=== PATIENT | female | born 2000 | race Caucasian/White ===

== ENCOUNTER 2022-05-14 09:29 | Emergency (ER) | payer OTHER ==
[~2022-05-14] VITALS: Ht 157.5 cm; Wt 54.6 kg
[2022-05-14 09:31] VITALS: BP 119/60
--- NOTE | 2022-05-14 09:49 | NUR ---
21 Y/O F BIB SELF C/O ANXIETY, NAUSEA, COLD SWEAT, SHAKING ON AND OFF FOR X 2 MONTHS. LMP 3 MONTHS AGO. PT HAS BEEN TAKING OVER THE COUNTER STRESS GUMMIES WITH NO RELIVE. NKA PMH: DENIES
--- NOTE | 2022-05-14 10:26 | NUR ---
DR ROMERO AT BEDSIDE.
--- NOTE | 2022-05-14 10:45 | NUR ---
Patient discharged with v/s stable. Written and verbal after care instructions given and explained. Patient verbalized understanding. Ambulatory with steady gait. All questions addressed prior to discharge. Advised to follow up with PMD.
--- NOTE | 2022-05-14 10:53 | NUR ---
The patient's care was reviewed and supervised by Olga Tripp RN.
== END 2022-05-14 10:45 | disposition home or self-care (01) ==
LOC: MED 09:29
DX: F41.0 Panic disorder [episodic paroxysmal anxiety] (principal)
CPT/HCPCS: 81002; 81025; 99282

== ENCOUNTER 2022-11-14 21:41 | Emergency (ER) | payer OTHER ==
[~2022-11-14] VITALS: Ht 157.5 cm; Wt 54.4 kg
[2022-11-14 21:50] VITALS: BP 126/86
--- NOTE | 2022-11-14 21:53 | NUR ---
TO LOBBY A/W BED AMBULATORY
[2022-11-15] MEDS ORDERED: LIDOCAINE 1% 500 MG/ 50 ML VIAL INJ ONE (00:15)
[2022-11-15] MEDS ORDERED: LIDOCAINE 2% 1000 MG/50 ML VIAL INJ ONE (00:20)
[2022-11-15] MEDS ORDERED: LIDOCAINE MPF 1% 5 ML ONE (00:22)
[2022-11-15] MEDS ORDERED: LIDOCAINE MPF 1% 10 MG/ML VIAL INJ ONE (00:30)
[2022-11-15 01:12] VITALS: BP 118/63
== END 2022-11-15 01:07 | disposition home or self-care (01) ==
LOC: MED 21:41
DX: S61.212A Laceration without foreign body of right middle finger without damage to nail, initial encounter (principal); W45.8XXA Other foreign body or object entering through skin, initial encounter; Y93.89 Activity, other specified; Y92.89 Other specified places as the place of occurrence of the external cause; Y99.8 Other external cause status
CPT/HCPCS: 12001; 99282; J2001; 90715

== ENCOUNTER 2022-11-18 20:03 | Emergency (ER) | payer OTHER ==
[~2022-11-18] VITALS: Ht 157.5 cm; Wt 57.3 kg
[2022-11-18 20:40] VITALS: BP 114/58
--- NOTE | 2022-11-18 20:44 | NUR ---
PT TO LOBBY
--- NOTE | 2022-11-18 23:19 | NUR ---
PATIENT SPOKE WITH ER MD PRIOR TO DISCHARGE. DISCHARGED WITHOUT PAPERWORK.
== END 2022-11-18 23:19 | disposition home or self-care (01) ==
LOC: MED 20:03
DX: S61.212D Laceration without foreign body of right middle finger without damage to nail, subsequent encounter (principal); Z48.00 Encounter for change or removal of nonsurgical wound dressing; X58.XXXD Exposure to other specified factors, subsequent encounter
CPT/HCPCS: 99281

== ENCOUNTER 2022-11-25 19:55 | Emergency (ER) | payer OTHER ==
[~2022-11-25] VITALS: Ht 157.5 cm; Wt 55.8 kg
[2022-11-25 20:20] VITALS: BP 109/63
--- NOTE | 2022-11-25 20:23 | NUR ---
TO LOBBY A/W BED AMBULATORY
--- NOTE | 2022-11-25 22:23 | NUR ---
PT TO [facility]
[2022-11-25] MEDS ORDERED: BACTO TP (23:25)
[2022-11-25 23:30] VITALS: BP 109/63
--- NOTE | 2022-11-25 23:30 | NUR ---
Patient discharged with v/s stable. Written and verbal after care instructions given and explained. Patient alert, oriented and verbalized understanding of instructions. Ambulatory with steady gait. All questions addressed prior to discharge. ID band removed. Patient advised to follow up with PMD. Rx of BACTROBAN given. Patient educated on indication of medication including possible reaction and side effects. Opportunity to ask questions provided and answered.
== END 2022-11-25 23:30 | disposition home or self-care (01) ==
LOC: MED 19:55
DX: S61.212D Laceration without foreign body of right middle finger without damage to nail, subsequent encounter (principal); Z48.02 Encounter for removal of sutures; Z79.899 Other long term (current) drug therapy; W23.0XXD Caught, crushed, jammed, or pinched between moving objects, subsequent encounter
CPT/HCPCS: 99283

== ENCOUNTER 2023-10-17 16:36 | Emergency (ER) | payer OTHER ==
[~2023-10-17] VITALS: Ht 157.5 cm; Wt 56.7 kg
[~2023-10-17 16:36] MED LIST: BACTO TP
[2023-10-17 16:50] VITALS: BP 103/67; PULSE 79; RESP 18; TEMP 96.5; O2SAT 98
[2023-10-17 17:17] LABS: APPEARANCE,URINE SL CLOUDY (CLEAR); BILIRUBIN,URINE 1+ (NEGATIVE); BLOOD, URINE 3+ (NEGATIVE); COLOR,URINE RED (YELLOW); LEUKOCYTE ESTERASE ,URINE TRACE (NEGATIVE); NITRITE, URINE NEGATIVE (NEGATIVE); PH,URINE 6.5 (5.0-9.0); PROTEIN,URINE 2+ (NEGATIVE); UGLUCOSE NEGATIVE (NEGATIVE)
[2023-10-17 17:28] LABS: BACTERIA,URINE FEW /HPF (None Seen); ICTOTEST NEGATIVE (NEGATIVE); RBC,URINE 11-20 (MOD) /HPF (0-5); SQUAMOUS EPITHELIAL CELL,UR 4-10 (MOD) /LPF (0-3 (FEW)); WBC,URINE 0-5 /HPF (0-5)
[2023-10-17] MEDS ORDERED: NITR100C7 PO (17:40)
== END 2023-10-17 18:38 | disposition home or self-care (01) ==
LOC: MED 16:36
DX: N39.0 Urinary tract infection, site not specified (principal); Z79.2 Long term (current) use of antibiotics
CPT/HCPCS: 81001; 81025; 87086; 99283

== ENCOUNTER 2024-06-27 20:46 | Emergency (ER) | payer OTHER ==
[~2024-06-27] VITALS: Ht 157.5 cm; Wt 52.6 kg
[~2024-06-27 20:46] MED LIST changes: +NITR100C7 PO
[2024-06-27 20:55] VITALS: BP 128/71; PULSE 61; RESP 18; TEMP 98; O2SAT 99
[2024-06-27 21:15] LABS: APPEARANCE,URINE CLEAR (CLEAR); BILIRUBIN,URINE NEGATIVE (NEGATIVE); BLOOD, URINE NEGATIVE (NEGATIVE); COLOR,URINE YELLOW (YELLOW); LEUKOCYTE ESTERASE ,URINE NEGATIVE (NEGATIVE); NITRITE, URINE NEGATIVE (NEGATIVE); PROTEIN,URINE NEGATIVE (NEGATIVE); UGLUCOSE NEGATIVE (NEGATIVE); UROBILINOGEN,URINE 0.2 EU/dL (0.2 - 1)
[2024-06-27] MEDS ORDERED: NITR100C7 PO (21:37)
[2024-06-27] MEDS ORDERED: PYR100 PO (21:38)
[2024-06-27] MEDS ORDERED: IBUP-2213 PO (21:38)
[2024-06-27 22:01] VITALS: BP 128/71; PULSE 61; RESP 18; TEMP 98; O2SAT 99
== END 2024-06-27 22:01 | disposition home or self-care (01) ==
LOC: MED 20:46
DX: R30.0 Dysuria (principal); R03.0 Elevated blood-pressure reading, without diagnosis of hypertension; Z79.899 Other long term (current) drug therapy
CPT/HCPCS: 81003; 87086; 99283